=== PATIENT | female | born 1950 | race Caucasian/White ===

== ENCOUNTER → 2016-12-31 | Outpatient (CLI) | payer MEDICARE ==
[~2016-12-31] MED LIST: BENA5 PO; CALTTAB2 PO; CLON.5 PO; ECOT81TA2 PO; LEVA500T33 PO; METR250 PO; ROSU10 PO; TAB-TAB PO
--- NOTE | 2017-01-11 09:57 | RSPPFT ---
DATE OF PROCEDURE: 12/31/16 COMMENTS: Spirometry demonstrates an FEV1 of 0.9 at 41% of predicted, FVC of 2.1 at 76%, FEV1/FVC ratio is 43%. The FEF 25-75 is 12% of predicted. Post-bronchodilator study demonstrated no significant change. Lung volumes demonstrated a raised RV/TLC ratio suggesting hyperinflation and air trapping. Diffusion capacity is moderately reduced. Flow volume loops indicate severe obstruction. IMPRESSION: 1. Severe obstructive disease. 2. No significant improvement following use of bronchodilator. 3. Moderate loss in diffusion capacity.
== END ==
LOC: PHRSP 07:52
DX: R05 Cough (principal); J44.9 Chronic obstructive pulmonary disease, unspecified; R06.00 Dyspnea, unspecified
CPT/HCPCS: 94060; 94726; 94729